=== PATIENT | female | born 1970 | race Caucasian/White ===

== ENCOUNTER → 2024-06-02 | Outpatient (CLI) | payer MEDICARE, MEDICAID, SELFPAY ==
--- NOTE | 2024-06-02 14:51 | RAD_ITS ---
STUDY: X-RAY - CERVICAL SPINE REASON FOR EXAM: Female, 53 years old. CERVICAL RADICULOPATHY TECHNIQUE: 5 view(s) of the cervical spine were obtained. COMPARISON: None FINDINGS: Normal anterior atlantoaxial articulation. Normal odontoid process. There is straightening of the normal cervical lordosis. There is multi-level endplate spondylosis. There is multi-level degenerative disc disease with multilevel disc space narrowing. Normal visualized intervertebral neuroforamina. The soft tissue structures are unremarkable. RAD/Cerv Spine 4 or 5 Views IMPRESSION: Degenerative disc disease with straightening of the normal lordotic curvature. Electronically Signed: Mono Delcid MD at 8:55 EDT ,
== END | disposition home or self-care (01) ==
PROVIDERS: PCP Internal Medicine; Referring Provider Anesthesiology; Visit Provider Anesthesiology
DX: M54.12 Radiculopathy, cervical region (principal)
CPT/HCPCS: 72050

== ENCOUNTER → 2024-09-29 | Outpatient (CLI) | payer MEDICARE, MEDICAID, SELFPAY ==
--- NOTE | 2024-09-29 15:23 | RAD_ITS ---
EXAM: XR LUMBOSACRAL SPINE, 2 OR 3 VIEWS CLINICAL INDICATION: LUMBAR SPONDYLOSIS TECHNIQUE: Frontal and lateral views of the lumbar spine and sacrum. COMPARISON: No relevant prior studies available. FINDINGS: VERTEBRAE: Multilevel facet arthrosis and endplate osteophytosis. [place] left lumbar curvature. No fracture or spondylolysis. No spondylolisthesis. DISC SPACES: Multilevel intervertebral disc height loss is worst at L2-L3 and L5-S1. VASCULATURE: Vascular calcifications. GASTROINTESTINAL TRACT: Normal as visualized. Included bowel gas pattern is non-obstructive. RAD/Lumbar Spine 2 or 3 Views IMPRESSION: No fracture or spondylolysis. No spondylolisthesis. Degenerative changes. Electronically Signed: Chris Heck DO at 22:29 EST ,
== END | disposition home or self-care (01) ==
LOC: RAD 15:08
PROVIDERS: PCP Internal Medicine; Referring Provider Anesthesiology; Visit Provider Anesthesiology
DX: M47.816 Spondylosis without myelopathy or radiculopathy, lumbar region (principal)
CPT/HCPCS: 72100

== ENCOUNTER 2024-11-27 15:00 | Outpatient (RCR) | payer MEDICARE, MEDICAID, SELFPAY ==
--- NOTE | 2024-10-27 14:03 | HP.PTEVAL ---
Patient's Visit Information Visit Information Visit Information: MAICOL PAUL is a 54 year old F referred to Physical Therapy by Dr. Matthieu Infante MD with a diagnosis of CERVICAL RADICULOATHY ,LUMBAR SPONDYLOSIS. Date of Evaluation: 10/27/24 Physical Therapist: Messi Curry, PT, Cert MDT, OCS Visit Plan Frequency: 2x /Week Duration: 4 Weeks Plan: PT INTERVENTIONS AQUATIC THERAPY CERVICAL/LUMBAR ROM ,POSTURAL EX'S ,DLS ,BUE/BLE STRENGTHENING AND ACTIVITY MODIFICATION Subjective Subjective: This 54 y/o female presents to physical therapy with cervical and lumbar pain. Patient has had neck and back pain many years. Seen Family recommended pain management . Then seen DR Infante who recommended PT with Aquatics. Patient had x-rays showed lumbar Multilevel intervertebral disc height loss is worst at L2-L3 and L5-S1. Cervical showed Degenerative disc disease with straightening of the normal lordotic curvature. Pain located cervical with right UE . Aggravating factors sleeping ,turning to right. Alleviating factors rest. C/O MISHRA , dizziness ,denies tinnitus/nausea. Location back symmetrical lumbar to bilateral legs . Aggravating factors bending/lifting ,walking /standing/sitting.Alleviating factors rest. Patient condition affects QOL and function. Patient has no trauma. Patient goals to have no pain. SOCIAL: SINGLE VOCATION: not working Pain Bilateral Neck: Pain Intensity (Out of 10): 5 Pain Intensity Range: 9 Bilateral Back: Pain Intensity (Out of 10): 8 Pain Intensity Range: 10 Objective Objective: POSTURE: mild forward posture ,rounded shoulders head forward PALAPTION: tender UT /levators ,paraspinals,erector spinals GAIT: reciprocal pattern mild forward posture slow katerin NEURO: denies paresthesia/tingling ,reflexes C5-6-7 ,L3-4,L4-5 ,L5-S1 1/3 AROM:BUE WFL HIP IR: PROM 10 degrees CERVICAL ROM: flexion min loss ,extension ,lateral flexion/rotation ,mod loss , MMT BUE: 4/5 except shoulders 3+/5 LUMBAR ROM: mod loss ,side glides mod loss ,extension min/mod loss MMT: quads/hams 4/5 ,hip flexion 3+/5 ,ankle 4/5 FLEXABILITY : min loss hamstrings Special Tests C/S Radiculapathy - Left Upper limb tension test: Negative C/S Radiculapathy - Right Upper limb tension test: Negative C/S Radiculapathy - Left Spurlings: Positive C/S Radiculapathy - Right Spurlings: Positive C/S Radiculapathy - Left Cervical distraction: Positive C/S Radiculapathy - Right Cervical distraction: Positive C/S Radiculapathy - Left Relief test: Negative C/S Radiculapathy - Right Relief test: Negative Sharp Nicholas: Negative Vertebral Artery Test: Negative Alar Ligament Test: Negative L/S Slump test left side: Negative L/S Slump test right side: Negative L/S Left Straight Leg Raise: Negative L/S Right Straight Leg Raise: Negative Balance/Special Test Scores Oswestry Low Back Score: 32 Goals Goal 1:: Patient to be I with Aquatic therapy program Goal Time Frame: 4-6 Weeks Goal 2:: Patient to demonstrate 40% improvement with decrease pain with function Goal Time Frame: 4-6 Weeks Goal 3:: Patient to improve cervical ROM and lumbar ROM for function of recovery for ADLS and putting on shoes. Goal Time Frame: 4-6 Weeks Goal 4:: Patient to improve back oswestry score by 5 points to improve QOL. Goal Time Frame: 4-6 Weeks Goal 5:: Patient participate in ADL's and housework tasks with less pain. Goal Time Frame: 4-6 Weeks Rehabilitation Potential Physical Therapy Diagnosis: This patient has cervical and lumbar pain along with psychosocial complexity to influence condition with pain with positioning and motion testing thus benefit from skilled PT Rehabilitation Potential: Fair Anticipated Interventions Patient/Client Instruction: Educate patient on: Condition and Plan of Care For the Purpose of:: To decrease pain, To increase ROM, To improve muscle performance and motor function, To improve ability to perform ADL's, To increase tolerance to activity/condition/position, To improve ability of physical actions for home/community/work/leisure, To improve health of tissue, To decrease soft tissue restriction, To increase flexibility/ROM, To improve endurance, To reduce risk of recurrence, To prevent re-injury and To improve tolerance to ADL's Therapeutic Exercise to Include: Strength training, Balance training, Postural training, Flexibilty training, In an aquatic setting, Active ROM and Dynamic Lumbar Stabilization For the Purpose of:: To decrease pain, To increase ROM, To improve muscle performance and motor function, To improve ability to perform ADL's, To increase tolerance to activity/condition/position, To improve ability of physical actions for home/community/work/leisure, To improve health of tissue, To decrease soft tissue restriction, To increase flexibility/ROM, To improve endurance, To reduce risk of recurrence, To prevent re-injury and To improve tolerance to ADL's Text: Thank you for the opportunity to evaluate your patient. For Medicare and Medicare HMO plans, please review the plan of care and approve it. It will need to be FAXED BACK to us at [phone] for Medicare purposes. For Medicare only, by signing this I certify the plan of care. Please let me know if there are questions or concerns regarding this plan of care. Physician Signature: Date:
--- NOTE | 2024-11-27 15:25 | HP.PTEVAL_ITS ---
Patient's Visit Information Visit Information Visit Information: MAICOL PAUL is a 54 year old F referred to Physical Therapy by Dr. Matthieu Infante MD with a diagnosis of CERVICAL RADICULOATHY ,LUMBAR SPONDYLOSIS. Date of Evaluation: 10/27/24 Physical Therapist: Messi Curry, PT, Cert MDT, OCS Visit Plan Frequency: 2x /Week Duration: 4 Weeks Plan: D/C Subjective Subjective: This 54 y/o female presents to physical therapy with cervical and lumbar pain. Patient has had neck and back pain many years. Seen Family recommended pain management . Then seen DR Infante who recommended PT with Aquatics. Patient had x-rays showed lumbar Multilevel intervertebral disc height loss is worst at L2-L3 and L5-S1. Cervical showed Degenerative disc disease with straightening of the normal lordotic curvature. Pain located cervical with right UE . Aggravating factors sleeping ,turning to right. Alleviating factors rest. C/O MISHRA , dizziness ,denies tinn itus/nausea. Location back symmetrical lumbar to bilateral legs . Aggravating factors bending/lifting ,walking /standing/sitting.Alleviating factors rest. Patient condition affects QOL and function. Patient has no trauma. Patient goals to have no pain. SOCIAL: SINGLE VOCATION: not working Pain Bilateral Neck: Pain Intensity (Out of 10): 6 Pain Intensity Range: 9 Comment: 8-9 Bilateral Back: Pain Intensity (Out of 10): 6 Pain Intensity Range: 10 Comment: 8-9 WHOLE BODY: Pain Intensity (Out of 10): 7 Objective Objective: POSTURE: mild forward posture ,rounded shoulders head forward PALAPTION: tender UT /levators ,paraspinals,erector spinals GAIT: reciprocal pattern mild forward posture slow katerin NEURO: denies paresthesia/tingling ,reflexes C5-6-7 ,L3-4,L4-5 ,L5-S1 1/3 AROM:BUE WFL HIP IR: PROM 10 degrees CERVICAL ROM: flexion min loss ,extension ,lateral flexion/rotation ,mod loss , MMT BUE: 4/5 except shoulders 3+/5 LUMBAR ROM: mod loss ,side glides mod loss ,extension min/mod loss MMT: quads/hams 4/5 ,hip flexion 3+/5 ,ankle 4/5 FLEXABILITY : min loss hamstrings Special Tests C/S Radiculapathy - Left Upper limb tension test: Negative C/S Radiculapathy - Right Upper limb tension test: Negative C/S Radiculapathy - Left Spurlings: Positive C/S Radiculapathy - Right Spurlings: Positive C/S Radiculapathy - Left Cervical distraction: Positive C/S Radiculapathy - Right Cervical distraction: Positive C/S Radiculapathy - Left Relief test: Negative C/S Radiculapathy - Right Relief test: Negative Sharp Nicholas: Negative Vertebral Artery Test: Negative Alar Ligament Test: Negative L/S Slump test left side: Negative L/S Slump test right side: Negative L/S Left Straight Leg Raise: Negative L/S Right Straight Leg Raise: Negative Balance/Special Test Scores Oswestry Low Back Score: 10 Goals Goal 1:: Patient to be I with Aquatic therapy program Goal Time Frame: 4-6 Weeks Goal 2:: Patient to demonstrate 40% improvement with decrease pain with function Goal Time Frame: 4-6 Weeks Goal 3:: Patient to improve cervical ROM and lumbar ROM for function of recovery for ADLS and putting on shoes. Goal Time Frame: 4-6 Weeks Goal 4:: Patient to improve back oswestry score by 5 points to improve QOL. Goal Time Frame: 4-6 Weeks Goal 5:: Patient participate in ADL's and housework tasks with less pain. Goal Time Frame: 4-6 Weeks Rehabilitation Potential Physical Therapy Diagnosis: This patient has cervical and lumbar pain along with psychosocial complexity to influence condition with pain with positioning and motion testing thus benefit from skilled PT Rehabilitation Potential: Fair Anticipated Interventions Patient/Client Instruction: Educate patient on: Condition and Plan of Care For the Purpose of:: To decrease pain, To increase ROM, To improve muscle performance and motor function, To improve ability to perform ADL's, To increase tolerance to activity/condition/position, To improve ability of physical actions for home/community/work/leisure, To improve health of tissue, To decrease soft tissue restriction, To increase flexibility/ROM, To improve endurance, To reduce risk of recurrence, To prevent re-injury and To improve tolerance to ADL's Therapeutic Exercise to Include: Strength training, Balance training, Postural training, Flexibilty training, In an aquatic setting, Active ROM and Dynamic Lumbar Stabilization For the Purpose of:: To decrease pain, To increase ROM, To improve muscle performance and motor function, To improve ability to perform ADL's, To increase tolerance to activity/condition/position, To improve ability of physical actions for home/community/work/leisure, To improve health of tissue, To decrease soft tissue restriction, To increase flexibility/ROM, To improve endurance, To reduce risk of recurrence, To prevent re-injury and To improve tolerance to ADL's Text: Thank you for the opportunity to evaluate your patient. For Medicare and Medicare HMO plans, please review the plan of care and approve it. It will need to be FAXED BACK to us at [phone] for Medicare purposes. For Medicare only, by signing this I certify the plan of care. Please let me know if there are questions or concerns regarding this plan of care. Physician Signature: Date:
--- NOTE | 2024-11-27 16:10 | HP.PTDCSUM ---
Discharge Summary D/C summary: It has been my pleasure to treat MAICOL PAUL referred by Dr. Matthieu Infante MD, with the diagnosis of CERVICAL RADICULOATHY ,LUMBAR SPONDYLOSIS for a total of 8 visit(s). Discharge Date: 11/27/24 Please see the following information for a summary of their discharge status. Subjective Subjective: Doing alot better walking better Pain Bilateral Neck: Pain Intensity (Out of 10): 6 Bilateral Back: Pain Intensity (Out of 10): 6 WHOLE BODY: Pain Intensity (Out of 10): 7 Overall Improvement % Improvement: 90 Objective Objective/Function: POSTURE: mild forward posture ,rounded shoulders head forward PALAPTION: tender UT /levators ,paraspinals,erector spinals GAIT: reciprocal pattern mild forward posture slow katerin NEURO: denies paresthesia/tingling ,reflexes C5-6-7 ,L3-4,L4-5 ,L5-S1 1/3 AROM:BUE WFL HIP IR: PROM 10 degrees CERVICAL ROM: flexion min loss ,extension ,lateral flexion/rotation ,min loss , MMT BUE: 4/5 except shoulders 3+/5 LUMBAR ROM: mod loss ,side glides mod loss ,extension min/mod loss MMT: quads/hams 4/5 ,hip flexion 3+/5 ,ankle 4/5 Goals Goal 1:: Patient to be I with Aquatic therapy program Goal Progress: Goal Met Goal 2:: Patient to demonstrate 40% improvement with decrease pain with function Goal Progress: Goal Met Goal 3:: Patient to improve cervical ROM and lumbar ROM for function of recovery for ADLS and putting on shoes. Goal Progress: Goal Met Goal 4:: Patient to improve back oswestry score by 5 points to improve QOL. Goal Progress: Goal Met Goal 5:: Patient participate in ADL's and housework tasks with less pain. Goal Progress: Goal Met Plan Plan: D/C D/C Information d/c sentence: If there are questions or concerns regarding this patient's physical therapy, please feel free to call me at [phone]. Thank you for the referral of this patient. Sincerely, Messi Curry, PT, Cert MDT, OCS Balance/Gait/Functional tests Balance/Special Test Scores Oswestry Low Back Score: 10 Improvement % Improvement: 90
== END 2024-11-27 19:00 | disposition home or self-care (01) ==
LOC: PT 15:00
PROVIDERS: PCP Internal Medicine; Referring Provider Anesthesiology; Visit Provider Anesthesiology
DX: M54.12 Radiculopathy, cervical region (principal); M43.06 Spondylolysis, lumbar region; M79.7 Fibromyalgia
CPT/HCPCS: 97110; 97113; 97162